=== PATIENT | male | born 1955 | race Caucasian/White ===

== ENCOUNTER 2021-05-22 15:16 | Outpatient (CLI) | payer MEDICARE | END 2021-05-22 15:17 | disposition home or self-care (01) | LOC: BICMRI 15:16 | PROVIDERS: ATTEND Anesthesiology Pain Medicine | DX: M48.062 Spinal stenosis, lumbar region with neurogenic claudication (principal); M47.816 Spondylosis without myelopathy or radiculopathy, lumbar region; M43.16 Spondylolisthesis, lumbar region; Z98.1 Arthrodesis status | CPT/HCPCS: 72100; 72158 ==

== ENCOUNTER 2022-06-19 13:40 | Outpatient (CLI) | payer MEDICARE | END 2022-06-19 13:41 | disposition home or self-care (01) | LOC: BICCT 13:40 | PROVIDERS: ATTEND Family Medicine | DX: Z12.2 Encounter for screening for malignant neoplasm of respiratory organs (principal); F17.210 Nicotine dependence, cigarettes, uncomplicated; J98.09 Other diseases of bronchus, not elsewhere classified | CPT/HCPCS: 71271 ==

== ENCOUNTER 2023-06-21 09:34 | Day surgery (SDC) | payer MEDICARE ==
[2023-06-17 13:14] VITALS: BMI 32.1
[2023-06-17 15:11] LABS: Anion Gap 16 mmol/L (10-20); BUN (Urea Nitrogen) 13 mg/dL (8.4-25.7); Calc. Creatinine Clearance 131 mL/min (70-130); Carbon Dioxide 25 mmol/L (23-31); Chloride 105 mmol/L (98-107); Estimated GFR 94; Glucose 114 mg/dL (80-115); Potassium 4.5 mmol/L (3.5-5.1); Sodium 141 mmol/L (136-145)
[2023-06-17 15:21] LABS: Hematocrit 46.4 % (38.8-50.0); Hemoglobin 15.5 g/dL (13.5-17.5); Mean Corpuscular HGB CONC 33.4 g/dL (32.0-36.0); Mean Corpuscular Hemoglobin 31.6 pg (27.0-33.0); Mean Corpuscular Volume 94.5 fl (81.2-95.1); Platelet Count 340 10x3/uL (150-450); RBC Distribution Width 12.6 % (11.5-14.5); Red Blood Cell (RBC) Count 4.91 10x6/uL (4.32-5.72); White Blood Cell (WBC) Count 9.4 10x3/uL (3.5-10.5)
[2023-06-17 15:27] LABS: INR-International Normal Ratio 1.2; PTT 40.1 sec (22.0-33.0)
[2023-06-21] MEDS ORDERED: Heparin 10,000 UNITS/ 10 ML VIAL ONE (10:03)
[2023-06-21] MEDS ORDERED: Protamine Sulfate 50 MG/5 ML VIAL ONE ×2 (10:03→16:28)
[2023-06-21] MEDS ORDERED: Heparin 25,000 units/D5W 500 ML ONE (10:04)
[2023-06-21] MEDS ORDERED: Isoproterenol 0.2 MG/1 ML AMP ONE (10:04)
[2023-06-21] MEDS ORDERED: Ipratropium/Albuterol 3 ML NEB ONE (11:10)
[2023-06-21] MEDS ORDERED: Dexamethasone 20 MG/5 ML VIAL ONE (13:20)
[2023-06-21] MEDS ORDERED: PHENYLEPHRINE-NS 100 MCG/ML 10 ML SYRINGE ONE (13:20)
[2023-06-21] MEDS ORDERED: PROPOFOL 200 MG/20 ML VIAL ONE (13:20)
[2023-06-21] MEDS ORDERED: Rocuronium Bromide 10 MG/ML (10ML VIAL) ONE (13:20)
[2023-06-21] MEDS ORDERED: Lidocaine 1% PF 5 ML VIAL ONE (13:20)
[2023-06-21] MEDS ORDERED: Ondansetron PF 4 MG/2 ML Vial ONE ×2 (13:20→16:59)
[2023-06-21] MEDS ORDERED: Succinylcholine 200 MG/10 ml SYRINGE FS ONE (13:20)
[2023-06-21] MEDS ORDERED: fentaNYL 50 mcg/mL 1 mL Vial ONE ×3 (15:15→16:33)
== END 2023-06-21 20:55 | disposition home or self-care (01) ==
LOC: SDC 09:34
PROVIDERS: ATTEND Internal Medicine Cardiovascular Disease
PROC: 02583ZZ Destruction of Conduction Mechanism, Percutaneous Approach (ICD-10-PCS; principal; 2023-06-21)
PROC: 4A023FZ Measurement of Cardiac Rhythm, Percutaneous Approach (ICD-10-PCS; 2023-06-21)
PROC: 4A0234Z Measurement of Cardiac Electrical Activity, Percutaneous Approach (ICD-10-PCS; 2023-06-21)
DX: I48.19 Other persistent atrial fibrillation (principal); R53.83 Other fatigue; Z79.01 Long term (current) use of anticoagulants; F17.210 Nicotine dependence, cigarettes, uncomplicated
CPT/HCPCS: 80048; 85027; 85610; 85730; 93005 ×2; 93622; 93623; 93655; 93656; 93657; C1732 ×3; C1759; C1760; C1894 ×2; J3010; 93010; J1100; J1644; J2405; J2704; J2720; J7620

== ENCOUNTER 2023-09-08 16:00 | Outpatient (CLI) | payer MEDICARE | END 2023-09-08 16:01 | disposition home or self-care (01) | LOC: SLEEPLAB 16:00 | PROVIDERS: ATTEND Family Medicine | DX: G47.33 Obstructive sleep apnea (adult) (pediatric) (principal); G31.84 Mild cognitive impairment of uncertain or unknown etiology; R53.83 Other fatigue; R06.83 Snoring; I25.10 Atherosclerotic heart disease of native coronary artery without angina pectoris; E78.00 Pure hypercholesterolemia, unspecified; G89.29 Other chronic pain; I10 Essential (primary) hypertension; I48.91 Unspecified atrial fibrillation; E11.9 Type 2 diabetes mellitus without complications; G47.61 Periodic limb movement disorder; R09.02 Hypoxemia; I49.9 Cardiac arrhythmia, unspecified | CPT/HCPCS: 95810 ==

== ENCOUNTER 2023-09-27 14:27 | Outpatient (CLI) | payer MEDICARE | END 2023-09-27 14:28 | disposition home or self-care (01) | LOC: BICCT 14:27 | PROVIDERS: ATTEND Family Medicine | DX: R31.0 Gross hematuria (principal); K57.30 Diverticulosis of large intestine without perforation or abscess without bleeding; I70.90 Unspecified atherosclerosis; K76.89 Other specified diseases of liver; R91.1 Solitary pulmonary nodule | CPT/HCPCS: 74178; 82565 ==

== ENCOUNTER 2024-04-10 11:10 | Outpatient (CLI) | payer MEDICARE | END 2024-04-10 11:11 | disposition home or self-care (01) | LOC: BICRAD 11:10 | PROVIDERS: ATTEND Family Medicine | DX: R60.0 Localized edema (principal); I51.7 Cardiomegaly | CPT/HCPCS: 71046 ==